=== PATIENT | male | born 1975 | race American Indian/Alaskan Native ===

== ENCOUNTER 2019-04-22 21:40 | Emergency (ER) | payer MEDICAID, SELFPAY ==
[2019-04-22 21:43] VITALS: BP 137/90; PULSE 105; RESP 16; TEMP 36.8; O2SAT 97; BMI 29.5
--- NOTE | 2019-04-22 21:44 | DI.CT.S_ITS ---
PROCEDURE: CT KIDNEY URETER BLADDER (KUB) INDICATIONS: Right flank pain TECHNIQUE: Noncontrast 5 mm thick sections acquired from the diaphragms to the symphysis. 5 mm thick coronal and sagittal reformats were then performed. For radiation dose reduction, the following was used: automated exposure control, adjustment of mA and/or kV according to patient size. COMPARISON: None. FINDINGS: Image quality: Excellent. Lung bases: Lung bases are clear. Heart size is normal. Urinary system: There are tiny 1-2 mm renal calculi bilaterally. There is no hydronephrosis. Both kidneys are normal in size. Both ureters appear non-dilated throughout their expected courses. Bladder wall may be mildly thickened but the bladder is not distended; no calcified bladder stones. Other solid organs: Liver is normal in size. Gallbladder is normal. Pancreas is normal in contours. Spleen is normal in size. No adrenal nodules. Peritoneum and bowel: Unenhanced bowel loops demonstrate normal wall thickness and caliber. Moderate amount of stool in colon. Appendix is not seen. No free fluid or air. Nodes and vessels: No retroperitoneal or mesenteric adenopathy by size criteria. Aorta and inferior vena cava are normal in caliber. Abdominal wall: No ventral hernias. Pelvis: No free pelvic fluid. No inguinal hernias or adenopathy. Bones: No suspicious bony lesions. No vertebral body compression fractures. Degenerative changes noted in lumbar spine. IMPRESSION: 1. Nephrolithiasis bilaterally with 1-2 mm renal calculi. No ureteral stones. No hydronephrosis. 2. Possible mild bladder wall thickening the bladder is not fully distended. No significant discrepancy with the awake overnight counselor radiology preliminary report. Dictated by: Mercedez Luna M.D. on 04/23/2019 at 7:27 Approved by: Mercedez Luna M.D. on 04/23/2019 at 7:31
--- NOTE | 2019-04-22 22:03 | ED.BACK ---
HPI - Back Pain/Injury General Chief Complaint: Back Pain/Injury Stated Complaint: Low back pain/ elevated heart rate Time Seen by Provider: 04/22/19 21:41 Source: patient and EMS Mode of arrival: EMS Limitations: no limitations History of Present Illness HPI Narrative: 43-year-old male presents by EMS for evaluation of some right posterior back pain which is much worse with motion and improves with rest. He states that it started when he was bending and lifting up a heavy object. He denies any fever chills nor nausea or vomiting. He denies any difficulty with urination such as dysuria, frequency or urgency. He denies any change in bowel habits MD Complaint: back pain Onset (ago): day(s) Duration: constant Similar Symptoms Previously: No Location: right flank Severity: moderate Quality: sharp and stabbing Radiation: none Relieving factors: immobilization Exacerbating factors: movement Context: while lifting and turning/twisting Associated symptoms: denies other symptoms Related Data Previous Rx's Medication Instructions Recorded ketorolac 10 mg PO Q6H PRN #14 tab 04/22/19 lidocaine [Lidoderm] 1 patch TOP DAILY #15 each 04/22/19 Allergies Allergy/AdvReac Type Severity Reaction Status Date / Time cyclobenzaprine Allergy Verified 04/22/19 21:47 [From Flexeril] quetiapine [From Seroquel] Allergy Verified 04/22/19 21:47 Review of Systems Constitutional Constitutional: Denies chills, Denies fatigue, Denies fever(s), Denies frequent falls, Denies lethargy and Denies weakness Eyes Eyes: Denies change in vision, Denies eye discharge, Denies irritation and Denies loss of vision ENT Ears, Nose, Mouth, and Throat: Denies change in voice, Denies dizziness, Denies neck pain, Denies sore throat and Denies throat swelling Cardiovascular Cardiovascular: Denies chest pain, Denies irregular heart rhythm, Denies lightheadedness, Denies palpitations, Denies dyspnea, Denies dyspnea on exertion and Denies orthopnea Respiratory Respiratory: Denies cough, Denies dyspnea, Denies dyspnea on exertion and Denies wheezing Gastrointestinal Gastrointestinal: Denies abdominal pain, Denies change in bowel habits, Denies diarrhea, Denies nausea and Denies vomiting Genitourinary Genitourinary: Denies hematuria, Denies flank pain, Denies urinary incontinence and Denies urinary urgency Musculoskeletal Musculoskeletal: Denies back pain, Denies muscle weakness, Denies neck pain, Denies numbness and Denies tingling Integumentary/Breasts Skin/Breast: Denies pruritus, Denies erythema, Denies rash and Denies wounds Neurologic Neurologic: Denies behavioral changes, Denies confusion, Denies dizziness, Denies frequent falls, Denies loss of vision, Denies numbness, Denies tingling and Denies weakness Psychiatric Psychiatric: Denies anxiety, Denies behavioral changes, Denies confusion, Denies depression, Denies homicidal ideation and Denies suicidal ideation Endocrine Endocrine: Denies fatigue, Denies flushing and Denies palpitations Hematologic/Lymphatic Hematologic/Lymphatic: Denies easy bruising Allergic/Immunologic Allergic/Immunologic: Denies urticaria, Denies throat swelling and Denies wheezing Patient History Social History Smoking Status: Current every day smoker Smoking Status: Current every day smoker tobacco type: cigarettes alcohol intake frequency: a few times a week Substance Use Type: marijuana Exam Narrative Exam Narrative: GENERAL: [43] year old patient appears stated age. Well-nourished, well-developed patient, in mild distress. HEAD: Atraumatic. Normocephalic. EYES: Pupils equal round and reactive. Extraocular motions intact. No scleral icterus. No injection or drainage. ENT: Nose without bleeding, purulent drainage. Throat without erythema, tonsillar hypertrophy or exudate. Airway patent. NECK: Trachea midline. Non tender CARDIOVASCULAR: Regular rate and rhythm without murmurs, gallops, or rubs. RESPIRATORY: Clear to auscultation. Breath sounds equal bilaterally. No wheezes, rales, or rhonchi. GASTROINTESTINAL: Abdomen soft, non-tender, nondistended. EXTREMITIES: No edema or joint tenderness. BACK: rounding machine tender but free of any obvious external abnormalities. Patient exam notes decreased range of motion and muscle spasm, but no CVA tenderness, or vertebral point tenderness. There are no symptoms of cauda equina such as saddle anesthesia, and decreased reflexes, decreased sensation or strength. NEURO: AOx3. SKIN: No rash or erythema of visible areas, no evidence of clear fluid-filled blisters or rash in a single dermatomal distribution to suggest shingles Initial Vital Signs Initial Vital Signs: Vital Signs Temperature 98.3 F 04/22/19 21:43 Pulse Rate 105 H 04/22/19 21:43 Respiratory Rate 16 04/22/19 21:43 Blood Pressure 137/90 04/22/19 21:43 Pulse Oximetry 97 04/22/19 21:43 Course Orders Ordered: ED Orders 04/22/19 21:44 CT kidney ureter bladder (KUB) Stat 04/22/19 22:10 Basic Metabolic Panel Stat Complete Blood Count AUTO DIFF Stat Discontinued Medications Hydrocodone Bitart/Acetaminophen (Vicodin 5/325 Prepack) 1 bottle MISC SEEINSTR ONE Stop: 04/22/19 23:49 Last Admin: 04/23/19 00:09 Dose: 1 bottle Documented by: NAY Hydromorphone HCl (Dilaudid) 0.5 mg IV NOW ONE Stop: 04/22/19 23:32 Last Admin: 04/22/19 23:38 Dose: 0.5 mg Documented by: NAY Sodium Chloride (Normal Saline 0.9%) 1,000 mls @ 1,000 mls/hr IV BOLUS ONE Stop: 04/22/19 22:43 Last Infusion: 04/22/19 23:32 Dose: 0 mls/hr Documented by: Admin: 04/22/19 22:12 Dose: 1,000 mls/hr Documented by: IVAN Sodium Chloride (Normal Saline 0.9%) 1,000 mls @ 1,000 mls/hr IV BOLUS ONE Stop: 04/23/19 00:30 Last Infusion: 04/23/19 00:12 Dose: 0 mls/hr Documented by: Admin: 04/22/19 23:39 Dose: 1,000 mls/hr Documented by: NAY Ketorolac Tromethamine (Toradol) 15 mg IV NOW ONE Stop: 04/22/19 21:45 Last Admin: 04/22/19 22:12 Dose: 15 mg Documented by: IVAN Lidocaine (Lidoderm) 1 each TOP NOW ONE Stop: 04/22/19 21:45 Last Admin: 04/22/19 22:12 Dose: 1 each Documented by: IVAN Vital Signs Vital signs: Vital Signs - 8 hr 04/22/19 21:43 04/22/19 22:30 04/23/19 00:22 Temperature 98.3 F 97.9 F Pulse Rate 105 H 87 88 Respiratory Rate 16 14 18 Blood Pressure 137/90 132/81 Blood Pressure [Left Arm] 120/73 Pulse Oximetry 97 96 97 MDM - Back Pain/Injury Lab Data Result diagrams: 04/22/19 22:10 04/22/19 22:10 Labs: Lab Results 04/22/19 04/22/19 Range/Units 22:10 22:10 WBC 5.4 (4.5-11.0) X10^3/uL RBC 5.33 (4.5-5.9) X10^6/uL Hgb 14.9 (13.5-17.5) g/dL Hct 43.3 (41-53) % MCV 81.2 (80-100) fL MCH 28.0 (26-34) PG MCHC 34.5 (30-36) % RDW 15.1 H (11.6-14.8) % Plt Count 279 (150-400) X10^3/uL Neut % (Auto) 58.8 (50-75) % Lymph % (Auto) 32.5 (25-40) % [place] % (Auto) 7.4 (3-14) % Eos % (Auto) 0.8 L (2-4) % Baso % (Auto) 0.5 (0-2) % Neut # (Auto) 3200 (1270-6254) /uL Lymph # (Auto) 1800 (8399-8703) /uL [place] # (Auto) 400 (0-900) /uL Eos # (Auto) 0 (0-450) /uL Baso # (Auto) 0 (0-100) /uL Sodium 141 (137-145) mmol/L Potassium 3.7 (3.4-5.1) mmol/L Chloride 109 H (98-107) mmol/L Carbon Dioxide 25 (22-32) mmol/L BUN 8 L (9-20) mg/dL Creatinine 0.80 (0.66-1.25) mg/dL Estimated GFR > 60.0 (>60) mL/min BUN/Creatinine Ratio 10.0 (6-22) Glucose 121 H (70-100) mg/dL Calcium 8.7 (8.4-10.2) mg/dL Urine Dip Bedside Urine Glucose Negative Bedside Urine Bilirubin - Negative Bedside Urine Ketone - Negative Urine Specific Wiley 1.015 Bedside Urine Occult Blood - Negative Bedside Urine pH 6.0 Bedside Urine Protein - Negative Bedside Urine Urobilinogen - Negative Bedside Urine Nitrite - Negative Bedside Urine Leukocytes - Negative Esterase Imaging Data CT scan - abdomen/pelvis: Radiologist's Impression: No stones or other abnormality MDM Narrative Medical decision making narrative: 43-year-old male with right flank and lower back pain which is reproducible to palpation and motion. He is nonseptic and has a very reassuring evaluation including labs and CT. Multiple etiologies of back pain considered including; Epidural abscess, cauda equina, mass occupying lesion, and other considered. Patient feeling much better after the above-stated therapies. He has been given extensive return precautions and had questions answered to his apparent satisfaction. Discharge Plan Departure Patient Disposition: Home Clinical Impression: Mid back pain Strain of lumbar region Qualifiers: Encounter type: initial encounter Qualified Code(s): S39.012A - Strain of muscle, fascia and tendon of lower back, initial encounter Discharge Date/Time: 04/23/19 00:23 Instructions: DI for Back Spasm Activity Restrictions/Additional Instructions: *You have been diagnosed with [ Acute Right flank pain. You've have many labs drawn which are very reassuring. Also, your CT scan did not show any significant findings ] *What to do: *Take medications as directed *Follow up with your primary care provider in 2-3 days, call for an appointment. Let them know you were seen in the Emergency Department and that we ask that you be seen in follow up *Return to ER if you should have any new, worsening or concerning symptoms You have been prescribed narcotic medications. While on these medications you cannot drive or operate heavy machinery. Additionally you cannot sign legal documents or perform any duties such as this. 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 Please understand that we cannot provide further refills of narcotics or controlled substances through the ED and your pain management will need to be through your Primary Care Provider Prescriptions: New ketorolac 10 mg tablet 10 mg PO Q6H PRN (Reason: pain) Qty: 14 RF: 0 lidocaine [Lidoderm] 5 % adhesive patch,medicated 1 patch TOP DAILY Qty: 15 RF: 0
[2019-04-22] MEDS: KETOROLAC 60 MG/2 ML VIAL 15 MG IV (22:12)
[2019-04-22] MEDS: SODIUM CHLORIDE 0.9% 1,000 ML 1000 ML IV ×2 (22:12→23:39)
[2019-04-22] MEDS: LIDOCAINE PATCH 1 EACH ADH..PATCH TOP (22:12)
[2019-04-22 22:17] LABS: Add Manual Diff / Slide Review NO; Basophils Absolute Auto 0 /uL (0-100); Basophils Percent Auto 0.5 % (0-2); Eosinophils Absolute Auto 0 /uL (0-450); Eosinophils Percent Auto 0.8 % (2-4); Hematocrit 43.3 % (41-53); Hemoglobin 14.9 g/dL (13.5-17.5); Lymphocytes Absolute Auto 1800 /uL (1100-4500); Lymphocytes Percent Auto 32.5 % (25-40); Mean Corpuscular HGB Conc 34.5 % (30-36); Mean Corpuscular Volume 81.2 fL (80-100); Monocytes Absolute Auto 400 /uL (0-900); Monocytes Percent Auto 7.4 % (3-14); Neutrophils Absolute Auto 3200 /uL (1500-7000); Neutrophils Percent Auto 58.8 % (50-75); Platelet Count 279 X10^3/uL (150-400); Red Blood Cell Count 5.33 X10^6/uL (4.5-5.9); Red Cell Distribution Width 15.1 % (11.6-14.8); White Blood Cell Count 5.4 X10^3/uL (4.5-11.0)
[2019-04-22 22:27] LABS: Blood Urea Nitrogen 8 mg/dL (9-20); Calcium 8.7 mg/dL (8.4-10.2); Carbon Dioxide 25 mmol/L (22-32); Chloride 109 mmol/L (98-107); Estimated Glomerular Filt Rate > 60.0 mL/min (>60); Glucose 121 mg/dL (70-100); HEMOLYSIS 17 (0-50); Potassium 3.7 mmol/L (3.4-5.1); Sodium 141 mmol/L (137-145)
[2019-04-22 22:30] VITALS: BP 120/73; PULSE 87; RESP 14; O2SAT 96
[2019-04-22] MEDS: HYDROMORPHONE 0.5 MG INJ IV (23:38)
[2019-04-23] MEDS: HYDROCODONE/ACET 5/325 PREPACK 1 BOTTLE MISC (00:09)
[2019-04-23 00:22] VITALS: BP 132/81; PULSE 88; RESP 18; TEMP 36.6; O2SAT 97
== END 2019-04-23 00:23 | disposition home or self-care (01) ==
PROVIDERS: Emergency Provider Emergency Medicine
DX: S39.012A Strain of muscle, fascia and tendon of lower back, initial encounter (principal); R00.0 Tachycardia, unspecified; X50.0XXA Overexertion from strenuous movement or load, initial encounter
CPT/HCPCS: 36415; 74176; 80048; 81003; 85025; 96361; 96374; 96375; 99284; J1170; J1885

== ENCOUNTER → 2019-06-05 09:35 | Outpatient (CLI) | payer MEDICAID, SELFPAY ==
--- NOTE | 2019-06-05 | DI.RAD.S_ITS ---
PROCEDURE: XR CHEST 2V INDICATIONS: COUGH TECHNIQUE: 2 views of the chest were acquired. COMPARISON: [facility], CHEST 2 VIEW, 07/05/2008, 5:12. [facility], CHEST 2 VIEW, 06/17/2008, 22:38. FINDINGS: Surgical changes and devices: None. Lungs and pleura: Lungs are clear. No pleural effusions or pneumothorax. Mediastinum: Mediastinal contours are normal. Heart size is normal. Bones and chest wall: No suspicious bony abnormalities. Soft tissues appear unremarkable. IMPRESSION: Normal for age, source of current cough symptoms is not seen. Dictated by: Anthony Adams M.D. on 06/05/2019 at 10:40 Approved by: Anthony Adams M.D. on 06/05/2019 at 10:40
== END ==
PROVIDERS: PCP Physician Assistant; Referring Provider Physician Assistant; Visit Provider Physician Assistant
DX: R05 Cough (principal)
CPT/HCPCS: 71046